=== PATIENT | male | born 1955 | race Caucasian/White ===

== ENCOUNTER 2025-08-24 15:48 | Emergency (ER) | payer MEDICARE, OTHER, SELFPAY ==
[2025-08-24 15:50] VITALS: BP 144/85
[2025-08-24] MEDS: OMNIPAQUE 50 ML PO (17:14)
[2025-08-24] MEDS: NSS 500 IV (17:15)
--- NOTE | 2025-08-24 17:18 | ED.GENMED ---
History of Present Illness
General
Chief Complaint: Abdominal Pain
Source: patient
Exam Limitations: none
Time Seen by Provider: 08/24/25 16:45
History of Present Illness
History of Present Illness:
69-year-old male intermittent episodes of left groin pain over the last 3 days. No nausea or vomiting. No change in bowels. No flank or back pain. No history of same. Pain was worse this morning. Minimal now.
Past History
Past History
ED Past Medical History: Hypercholesterolemia, Other (Ocular migraines) and Other (COVID-19 URI October 2021)
ED Past Surgical History: Tonsilectomy and Other (Retinal laser surgery right eye)
Social History
Tobacco: Non-smoker
Alcohol: None
Drug: None
Personal:
Living: with family
Employment: Employed
Family History
Family History: Other (Noncontributory)
Review of Systems
Review of Systems
All Other Systems: Not applicable
Constitutional: Denies fever or chills
: Reports no symptoms
Phy Exam
Physical Exam
Physical Exam:
GENERAL: Alert and oriented in no apparent distress
EYE: Orbits normal.
NECK: Supple
CARDIAC: Regular rate and rhythm without any obvious murmurs.
LUNGS: Clear breath sounds,normal
ABDOMEN: Soft, without focal tenderness or distention. Hernia palpated in the left inguinal area. Easily reducible. Worse with standing up. Very small periumbilical hernia nontender
NEUROLOGICAL: Alert and oriented , grossly non-focal
SKIN: Warm and dry, no rash or lesion, no discoloration, skin intact.
MUSCULOSKELETAL: No edema,no deformity.Good color
PSYCH: Normal and appropriate interaction.
Course
Orders/Labs/Results
Orders:
Orders
08/24/25 17:07
CT Abd/pel W Iv And Oral Contr Urgent
Comment:
Reason For Exam: Left groin pain
IV Insert/Care/Rem.- Treatment PRN
0.9% Sodium Chloride 500 ml [Nss] 500 ml IV BOLUS
Iohexol [Omnipaque] See Protocol PO NOW STA
08/24/25 17:10
Complete Blood Count/With Diff Urgent
Comprehensive Metabolic Panel Urgent
Lipase Urgent
08/24/25 17:49
Urinalysis Reflex To Culture Urgent
Date Specimen was Collected: 08/24/25
Time Specimen was Collected: 17:48
Urine Microscopic Reflex Cult Urgent
Urine Culture Urgent
KRISTI Source: U
Specimen Description:
Date Specimen was Collected: 08/24/25
Time Specimen was Collected: 17:48
Abnormal Lab Results
08/24/25 08/24/25
17:10 17:49
WBC 10.9 H 10^3/uL
(4.8-10.8)
MCH 32.0 H pg
(27.0-31.0)
Absolute Neuts (auto) 8.7 H 10^3/uL
(1.4-6.5)
Neutrophils % 80.4 H %
(42.2-75.2)
Lymphocytes % 11.2 L %
(20.5-51.1)
Lipase 334 H U/L
(23-300)
Ur Occult Blood Reflex 1+ A
(Negative)
Leukocyte Esterase Rfl 1+ A
(Negative)
Urine RBC 3-6 A /HPF
(0-2)
Urine WBC (Reflex) 16-20 A /HPF
(0-5)
Urine Bacteria (Reflex) Few A
(Negative)
Urine Albumin (Reflex) 2+ A
(Neg - Trace)
08/24/25 17:10
08/24/25 17:10
Vital Signs
Initial and Last Documented VS:
Initial Vital Signs
Temp Pulse Resp BP Pulse Ox
98.0 F 59 16 144/85 97
08/24/25 15:50 08/24/25 15:50 08/24/25 15:50 08/24/25 15:50 08/24/25 15:50
Last Documented Vital Signs
Temp Pulse Resp BP Pulse Ox
98.0 F 59 16 144/85 97
08/24/25 15:50 08/24/25 15:50 08/24/25 15:50 08/24/25 15:50 08/24/25 17:19
MDM/Problems Addressed
Differential Diagnosis Includes:
High suspicion for left inguinal hernia. Nothing clinically to support incarcerated hernia and discussed further workup here versus outpatient with surgery. We will start the workup in the ED.
*Radiology
Radiology exam reviewed: radiology read reviewed (Left inguinal hernia. Renal cysts, plaque LAD, enlarged prostate, bladder outlet issue.)
*Pulse Oximetry
SaO2: 97
Oxygen Mode of Delivery: Room air
Patient hypoxic: no
*Critical Care Note
Total Time (30-74mins, 75-104mins- exclusive of procedures): Not Applicable
Update Note
Update Note:
Patient was given a copy of his CT report. He is clinically stable. Left inguinal hernia with fat. No incarcerated hernia. I did review his CT report stressing follow-up with urology and with cardiology. He did not describe any acute coronary
symptoms. Will cover for possible UTI
ED Attending Note
-
Portions of this chart may have been created with voice recognition software.� Occasional wrong word or��sound alike� substitutions may have occurred due to the inherent limitations of voice recognition software.
Discharge Plan
Departure
Patient Disposition: Home (Routine Discharge)
Date of Disposition: 08/24/25
Time of Disposition: 20:15
Patient with high blood pressure during this ER visit?: Yes
Discharge Problem:
Left inguinal hernia, Incidental significant LAD plaque, Incidental enlarged prostate/bladder out, Incidental renal cysts/stone, Possible UTI
Instructions: Groin hernias, BLOOD PRESSURE
Prescriptions:
New
cefdinir 300 mg capsule
300 mg PO BID 5 Days Qty: 10 0RF
No Action
rosuvastatin 5 MG tablet
5 mg PO QPM
Referrals:
Amaury Moise MD [Active, Surgical] - Next open appointment
Hi Meraz MD [Family Provider, Family Practice]
Activity Restrictions/Additional Instructions:
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 Reviewed your CT findings with each of them
Interventions
Interventions:
*Risk Screen - Suicide Last Done: 08/24/25 15:50
*General Assessment Last Done: 08/24/25 20:28
*Neglect/Abuse Screening Last Done: 08/24/25 15:50
*ED- Fall Risk Assessment Last Done: 08/24/25 20:28
*ED COVID-19 Vaccine History Last Done: 08/24/25 20:28
*ED Influenza Vaccine History Last Done: 08/24/25 20:28
*Nursing Disposition Last Done: 08/24/25 20:28
PT-Arlyjs-Sdxmcqrxsu Assessment Last Done: 08/24/25 16:45
Discharge Date and Time
Discharge Date/Time: 08/24/25 20:29
Print Language: HUNGARIAN
[2025-08-24 17:57] LABS: Hematocrit 49.3 % (39.0-52.0); Hemoglobin 16.9 g/dL (13.0-18.0); Mean Corp Hgb Conc. 34.3 g/dL (33.0-37.0); Mean Corpuscular Volume 93.4 fL (80.0-94.0); Nucleated Red Blood Cells % 0 % (-); Platelet Count 265 10^3/uL (130-400); Red Cell Dist. Width 13.0 % (11.5-14.5)
[2025-08-24 18:00] LABS: Urine Character Clear (Clear)
[2025-08-24 18:18] LABS: ALT (SGPT) 33 U/L (0-50); AST (SGOT) 29 U/L (17-59); Albumin 4.8 g/dl (3.5-5.0); Alkaline Phosphatase 54 U/L (38-126); Blood Urea Nitrogen 19 mg/dl (9-20); Calcium 9.3 mg/dl (8.4-10.2); Carbon Dioxide 27 mmol/L (22-30); Chloride 105 mmol/L (98-107); Glucose 87 mg/dl (70-99); Lipase 334 U/L (23-300); Potassium 4.4 mmol/L (3.5-5.1); Sodium 139 mmol/L (135-145); Total Protein 7.7 g/dl (6.3-8.2); eGFR > 60.00
[2025-08-24 19:18] LABS: Urine White Cell 16-20 /HPF (0-5)
--- NOTE | 2025-08-24 20:03 | EDRN ---
Dr. Drummond talking with patient and going over results
== END 2025-08-24 20:29 | disposition home or self-care (01) ==
LOC: EMR 15:48
PROVIDERS: EMERGENCY PHYSICIAN Emergency Medicine; FAMILY PHYSICIAN Family Medicine
DX: K40.90 Unilateral inguinal hernia, without obstruction or gangrene, not specified as recurrent (principal); I25.10 Atherosclerotic heart disease of native coronary artery without angina pectoris; N40.0 Benign prostatic hyperplasia without lower urinary tract symptoms; N32.0 Bladder-neck obstruction; N28.1 Cyst of kidney, acquired; N20.0 Calculus of kidney; E78.00 Pure hypercholesterolemia, unspecified; Z86.16 Personal history of COVID-19
CPT/HCPCS: 99284; 96360; 96361; 74177; 80053; 81003; 81015; 83690; 85025; 87086; Q9967